=== PATIENT | female | born 1945 | race Caucasian/White ===

== ENCOUNTER → 2016-12-06 | Outpatient (CLI) | payer MEDICARE | LOC: LAB 11:47 | DX: R94.5 Abnormal results of liver function studies (principal) | CPT/HCPCS: 36415; 80076 ==

== ENCOUNTER → 2021-01-01 | Outpatient (CLI) | payer MEDICARE | LOC: KOH-I 08:14 | DX: R10.11 Right upper quadrant pain (principal); R10.13 Epigastric pain; K76.0 Fatty (change of) liver, not elsewhere classified | CPT/HCPCS: 74150 ==

== ENCOUNTER 2022-01-12 19:09 | Emergency (ER) | payer MEDICARE ==
[2022-01-12 19:45] LABS: HEMOGLOBIN 15.6 gm/dl (12.3-15.3); RED BLOOD COUNT 7.17 M/UL (4.00-5.10)
[2022-01-12 20:04] LABS: BUN/CREATININE RATIO 12 (0-10)
== END 2022-01-13 12:35 | disposition home or self-care (01) ==
LOC: ER1 19:09
PROVIDERS: Family Medicine
DX: G93.40 Encephalopathy, unspecified (principal); I12.9 Hypertensive chronic kidney disease with stage 1 through stage 4 chronic kidney disease, or unspecified chronic kidney disease; N18.9 Chronic kidney disease, unspecified; D72.829 Elevated white blood cell count, unspecified; Z86.2 Personal history of diseases of the blood and blood-forming organs and certain disorders involving the immune mechanism; Z20.822 Contact with and (suspected) exposure to COVID-19; Z51.81 Encounter for therapeutic drug level monitoring
CPT/HCPCS: 0240U; 36600; 70450; 71045; 80053; 80307; 81001; 82550; 82553; 82803; 82962; 83605; 83690; 83735; 84439; 84443; 84484; 85025; 85610; 87040; 93005; 96374; 99285; G0480; J2405